=== PATIENT | female | born 1970 | race Caucasian/White ===

== ENCOUNTER 2020-11-28 15:19 | Outpatient (CLI) | payer OTHER, SELFPAY ==
--- NOTE | 2020-11-28 15:00 | ECG_ITS ---
Measurements Intervals [place] Rate: 77 P: 48 IA: 122 QRS: 48 QRSD: 93 T: 30 QT: 395 QTc: 448 Interpretive Statements SINUS RHYTHM BASELINE ARTIFACT- I, II, III, AVR, AVL, AVF NORMAL ECG Electronically Signed On 11-28-2020 15:34:36 CDT by Derick Breen D.O.
[2020-11-28 16:02] LABS: Basophils Absolute Auto 0.1 K/mm3 (0.0-0.1); Basophils Percent Auto 1.2 % (0.2-1.2); Eosinophils Absolute Auto 0.3 K/mm3 (0-0.3); Hematocrit 38.2 % (37.0-47.0); Hemoglobin 12.3 g/dL (12.0-15.0); Immature Granulocyte Absolute 0.02 K/mm3 (0.00-0.031); Immature Granulocyte Percent A 0.2 % (0-0.5); Lymphocytes Absolute Auto 2.19 K/mm3 (0.9-3.2); Lymphocytes Percent Auto 25.2 % (18.3-44.2); Mean Corpuscular HGB Conc 32.2 g/dl (32-36); Mean Corpuscular Hemoglobin 27.6 pg (26-34); Mean Corpuscular Volume 85.8 fl (80-100); Monocytes Absolute Auto 0.8 K/mm3 (0.1-0.6); Monocytes Percent Auto 9.6 % (2.6-8.5); Neutrophils Absolute Auto 5.3 K/mm3 (1.3-6.7); Neutrophils Percent Auto 60.8 % (45.5-73.1); Platelet Count Result 278 k/mm3 (150-375); Red Blood Count 4.45 M/mm3 (4.2-5.4); Red Cell Distribution Width 13.5 % (11.5-14.5); White Blood Count 8.7 K/mm3 (4.5-10.0)
== END 2020-11-28 15:20 | disposition home or self-care (01) ==
PROVIDERS: PCP Family Medicine; Visit Provider Obstetrics & Gynecology
DX: N92.6 Irregular menstruation, unspecified (principal); I49.9 Cardiac arrhythmia, unspecified; Z01.818 Encounter for other preprocedural examination
CPT/HCPCS: 36415; 85025; 86850; 86900; 86901; 93005

== ENCOUNTER 2020-12-02 01:14 | Day surgery (SDC) | payer OTHER, SELFPAY ==
[2020-11-25 11:50] VITALS: BMI 37.4
--- NOTE | 2020-11-29 09:41 | PM.IMHP ---
H&P: HPI History of Present Illness Date/Time: 11/29/20 09:41 this is a 49-year-old 7 para 6 with uterine fibroids and prolapse is admitted for robotic total vaginal hysterectomy and left salpingo-oophorectomy. Risks and benefits reviewed including but not exclusive of , aspiration pneumonia, bleeding, transfusion, perforation injury to bowel, bladder, ureters, or other internal organs with need for laparotomy. She voiced good understanding. She received the [employer] handout entitled hysterectomy. As well as the de Tony handout. She asked to proceed Chief Complaint: prolapse/pain Review of Systems Review of Systems: All systems reviewed & are unremarkable except as noted in HPI and below PMFSH Social History Social History Smoking status: Never smoker Alcohol intake: current Substance use: never Substance use type: does not use Spiritual care concerns: No Meds Home Medications and Allergies Home Medications Medication Instructions Recorded Confirmed Type calcium 200 mg PO DAILY 11/25/20 11/25/20 History cetirizine [Zyrtec] 10 mg PO DAILY 11/25/20 11/25/20 History cholecalciferol (vitamin D3) 100 mcg PO DAILY 11/25/20 11/25/20 History [Vitamin D3] duloxetine 60 mg PO DAILY 11/25/20 11/25/20 History etodolac 400 mg PO BID 11/25/20 11/25/20 History gabapentin 300 mg PO TID 11/25/20 11/25/20 History hydroxychloroquine [Plaquenil] 200 mg PO BID 11/25/20 11/25/20 History lutein 40 mg PO DAILY 11/25/20 11/25/20 History metoprolol succinate 25 mg PO DAILY 11/25/20 11/25/20 History multivitamin 2 tablet PO BID 11/25/20 11/25/20 History oxybutynin chloride 5 mg PO BID 11/25/20 11/25/20 History rotigotine [Neupro] 1 patch TRANSDERMAL DAILY 11/25/20 11/25/20 History tramadol 50 mg PO Q6H PRN 11/25/20 11/25/20 History vitamin B complex [Super B Complex] 1 tablet PO DAILY 11/25/20 11/25/20 History Allergies Allergy/AdvReac Type Severity Reaction Status Date / Time erythromycin base AdvReac Vomiting Verified 11/25/20 11:44 Exam Const: General: no acute distress Eyes: General: appearance normal, both eyes and all related structures Neck: Neck: supple and no JVD Thyroid: thyroid normal Resp: Effort & Inspection: normal respiratory effort Auscultation: clear to auscultation bilaterally Cardio: Rate: regular rate Rhythm: regular rhythm GI: Inspection: non-distended GI Palp: Yes Soft to palpation, No Tenderness to palpation present (GI) and No Guarding due to palpation present (GI) Auscultation: normal bowel sounds : General: Yes bladder normal to inspection External Female Exam: normal external appearance Speculum Exam - Vagina: normal appearance of the vagina Speculum Exam - Cervix: normal appearance of the cervix and Cervical os closed ( second-degree prolapse is present) Bimanual exam- vagina & uterus: enlarged Skin: General skin exam: no rashes or lesions noted Extrem: General: normal to inspection and no edema Psych: Mental Status: mental status grossly normal Affect: normal affect Assessment and Plan Additional Plan impression plan: The uterine prolapse enlarged uterus with pelvic pain Plan: Robotic total vaginal hysterectomy and bilateral salpingo-oophorectomy
[2020-12-02] VITALS (10 sets, daily range): BP systolic 103–116; BP diastolic 50–73; PULSE 67–90; RESP 12–20; TEMP 36.1–37.2; O2SAT 95–100
--- NOTE | 2020-12-02 06:44 | WPDHPUPDATE1 ---
History and Physical Update Update Date/Time: 12/02/20 06:44 History and Physical has been reviewed, including an updated exam of the patient. There are NO changes in the patient's condition. Risks, benefits, and alternatives have been discussed and questions answered. Patient agrees to proceed with procedure.
[2020-12-02] MEDS: ACETAMINOPHEN 500 MG TABLET 1000 MG PO (06:49)
--- NOTE | 2020-12-02 06:54 | WPDANESEPPF ---
Anes - Initial Pre Proc Eval Procedure: Operation Date: 12/02/20 07:30 Proposed Procedures p Robotic Assisted Total Vaginal Hysterectomy With Bilateral Salpingo Oophorectomy - Mina Jorge MD Date/Time: 12/02/20 06:54 Surgeon: Mina Jorge MD Pre Op Diagnosis: Enlarged Uterus, Irreg Bleeding Patient Data Age: 49 Gender: F Height: 5 ft 5 in Weight: 105 kg Last Vital Signs Temp 36.3 C L 12/02/20 06:34 Pulse 67 12/02/20 06:34 Resp 16 12/02/20 06:34 BP 116/73 12/02/20 06:34 Pulse Ox 100 12/02/20 06:34 Allergies Allergy/AdvReac Type Severity Reaction Status Date / Time erythromycin base AdvReac Intermediate Vomiting Verified 12/02/20 06:49 Home Medications Medication Instructions Recorded Confirmed Type calcium 200 mg PO DAILY 11/25/20 11/25/20 History cetirizine [Zyrtec] 10 mg PO DAILY 11/25/20 11/25/20 History cholecalciferol (vitamin D3) 100 mcg PO DAILY 11/25/20 11/25/20 History [Vitamin D3] duloxetine 60 mg PO DAILY 11/25/20 11/25/20 History etodolac 400 mg PO BID 11/25/20 11/25/20 History gabapentin 300 mg PO TID 11/25/20 11/25/20 History hydroxychloroquine [Plaquenil] 200 mg PO BID 11/25/20 11/25/20 History lutein 40 mg PO DAILY 11/25/20 11/25/20 History metoprolol succinate 25 mg PO DAILY 11/25/20 11/25/20 History multivitamin 2 tablet PO BID 11/25/20 11/25/20 History oxybutynin chloride 5 mg PO BID 11/25/20 11/25/20 History rotigotine [Neupro] 1 patch TRANSDERMAL DAILY 11/25/20 11/25/20 History tramadol 50 mg PO Q6H PRN 11/25/20 11/25/20 History vitamin B complex [Super B Complex] 1 tablet PO DAILY 11/25/20 11/25/20 History hydrocodone-acetaminophen 1 tablet PO Q6H PRN #30 tablet 12/02/20 Rx Patient hx anesthesia problems: none Family hx anesthesia problems: none [facility] Past Medical History Medical History (Updated 12/02/20 @ 07:13 by Mina Nunez MD) Mixed connective tissue disease Obesity PARVEZ on CPAP Social History Social History Smoking status: Never smoker Alcohol intake: current Alcohol use details: 2-3 TIMES/YEAR Substance use: never Substance use type: does not use Living arrangements: with family Spiritual care concerns: No Anes - Eval Final PreProcedure Day of Procedure 12/02/20 06:54 Patient weight: obese Heart: regular rate and rhythm Lungs: clear to auscultation Airway: Mallampati scale class II Neurological: alert and oriented Last oral intake: >/= 8 hours ASA classification: III Emergent: no Anesthetic plan: proceed Anesthesia type and monitoring: general ETT and standard monitoring Informed Consent: The patient's anesthetic plan and its attendant risks and benefits were discussed with the patient/family/POA. Questions were solicited and answers provided to the satisfaction of the patient/family/POA.
[2020-12-02] MEDS: KETOROLAC 15 MG/ML VIAL (*BKC) IV PUSH (07:25)
[2020-12-02] MEDS: LACTATED RINGERS 1,000 ML 30 ML IV CONT ×2 (07:27→09:11)
[2020-12-02] MEDS: ceFAZolin 2 GM/D5W 50 ML 2 GM/50 ML BAG IVPB (07:30)
--- NOTE | 2020-12-02 08:40 | SUR.OPER ---
uterus 206gm
--- NOTE | 2020-12-02 09:00 | P.OP_ITS ---
Procedure Note - Detailed Date of procedure: 12/02/20 Pre-op diagnosis: Enlarged Uterus, Irreg Bleeding Surgeon: Mina Jorge MD Postop diagnosis: Enlarged uterus/bleeding refractory to medical therapy Procedure: Robotic total vaginal hysterectomy and bilateral salpingo oophorectomies EBL: 100cc Anesthesia: General endotracheal Findings: Enlarged uterus. Enlarged left benign ovarian cyst. Tubes status post tubal ligation bilaterally. Complications: None Description of procedure: The patient was prepped draped in the normal sterile fashion and placed in the dorsal lithotomy position. Under excellent general endotracheal anesthesia weighted speculum placed in posterior fornix of vagina. Anterior lip of the cervix was grasped with a single-tooth tenaculum. The uterus sounded to 10cm. Serial dilatation with fragmented dilators performed followed by passage of the 8. JOHANNY and the 3. Cold cup. Next the 16 Khmer catheter was placed and drained of Q clear urine. The remainder the instruments removed. Gloves were changed A supraumbilical incision made in the Ve[place] needle passed in the abdomen. The abdomen was filled with CO2 gas [id number]. The 8mm trocar advanced in the abdomen and the downside visualized. No injury seen patient placed in Trendelenburg and right left lateral quadrant incisions made. 8mm trocars were then advanced into the abdomen under direct visualization assuring no injury. A right upper quadrant incision was made the 8mm trocar advanced under direct visualization assuring no injury. The robot was docked. Attention was turned to the console. The left round ligament was grasped anteriorly. This was clamped, burned, cut. Anteriorly a bladder flap was formed by sharply dissecting the peritoneum and reflecting the bladder caudally away from the uterus and cervix to the opposite round ligament which was clamped, burned, cut. Next the left infundibulopelvic structure was skeletonized to remove the left ovary and tube these were clamped, burned, cut and brought to the level of the previously cut round ligament. In like fashion removing the right ovary and tube the infundibulopelvic structure was skeletonized. This was clamped, burned, cut. This was brought to the level of the previously cut round ligament. Next the cardinal and broad ligaments on the left were serially skeletonized clamped, burned, cut and brought down the lateral edge until the uterine vessels could be seen on left these were large and tortuous and individually clamped, burned, cut. Next cardinal broad ligaments on the right were serially skeletonized clamped, burned, cut and brought down the lateral edge of the uterus until uterine vessels could be seen on the right uterine vessels were individually clamped, burned, cut. The excellent blanching the uterus was seen. A colpotomy incision was made in the cervix uterus ovaries and tubes removed through the vagina. Blood loss estimated [id number]. The vagina was closed with continuous running 0V lock from lateral edge to lateral edge back to the midline. Irrigation undertaken to clear and blood loss estimated [id number] or less. Hematuria was made cold over the vaginal cuff and hemostasis was assured. The robot was undocked. The gas removed from the abdomen. The incisions closed with 4 O Monocryl and glue after gas had been removed from the abdomen. The patient was awakened. All sponge, needle, instrument counts were correct. There were no immediate complications
[2020-12-02] MEDS: fentaNYL CITRATE INJ (*CRX) 100 MCG/2 ML VIAL 25 MCG IV PUSH ×8 (09:35→10:09)
--- NOTE | 2020-12-02 10:30 | PC.NURSE ---
This patient, Caitlin Harris, was received from PACU per bed to room 289. Patient/family oriented to unit policies and routines
[2020-12-02] MEDS: DEXTROSE 5%/LACTATED RINGERS 1,000 ML 125 ML IV CONT (10:54)
[2020-12-02] MEDS: HYDROcodone/acetaminophen (*CRX) 5-325 MG TABLET 1 TAB PO ×2 (13:24→14:15)
[2020-12-02] MEDS: IBUPROFEN 600 MG TABLET PO ×2 (14:15→20:18)
[2020-12-02] MEDS: HYDROcodone/acetaminophen (*CRX) 10-325 MG TABLET 1 TAB PO (20:17)
[2020-12-03] VITALS: BP 94/54; PULSE 88; RESP 16; TEMP 37.1; O2SAT 96
[2020-12-03] MEDS: IBUPROFEN 600 MG TABLET PO (04:48)
[2020-12-03] MEDS: HYDROcodone/acetaminophen (*CRX) 10-325 MG TABLET 1 TAB PO ×2 (04:49→09:36)
[2020-12-03 04:50] VITALS: BP 109/57; PULSE 77; RESP 18; TEMP 36.7; O2SAT 98
[2020-12-03 06:41] LABS: Basophils Percent Auto 0.4 % (0.2-1.2); Eosinophils Absolute Auto 0.1 K/mm3 (0-0.3); Eosinophils Percent Auto 0.6 % (0-4.4); Hematocrit 33.4 % (37.0-47.0); Hemoglobin 10.8 g/dL (12.0-15.0); Immature Granulocyte Absolute 0.03 K/mm3 (0.00-0.031); Immature Granulocyte Percent A 0.3 % (0-0.5); Lymphocytes Absolute Auto 2.26 K/mm3 (0.9-3.2); Lymphocytes Percent Auto 21.9 % (18.3-44.2); Mean Corpuscular HGB Conc 32.3 g/dl (32-36); Mean Corpuscular Hemoglobin 27.5 pg (26-34); Mean Platelet Volume 11.7 fl (7.4-10.4); Neutrophils Absolute Auto 6.9 K/mm3 (1.3-6.7); Neutrophils Percent Auto 66.8 % (45.5-73.1); Platelet Count Result 200 k/mm3 (150-375); Red Blood Count 3.93 M/mm3 (4.2-5.4); Red Cell Distribution Width 13.4 % (11.5-14.5); White Blood Count 10.3 K/mm3 (4.5-10.0)
--- NOTE | 2020-12-03 08:00 | PC.NURSE ---
PT introductions made and plan of care discussed per post op developer advisor surgery, pain management, daily care activities and pending discharge to home. PT verbalized understanding of such care.
--- NOTE | 2020-12-03 08:24 | P.PNAN_ITS ---
Anes - Prog Note Post-Op Date/Time: 12/03/20 08:24 Cardiovascular status: normal Respiratory status: normal Airway patency: baseline Mental status: baseline Post-Op hydration status: normal Vital Signs: Last Vital Signs Temp 36.7 C 12/03/20 04:50 Pulse 77 12/03/20 04:50 Resp 18 12/03/20 04:50 BP 109/57 L 12/03/20 04:50 Pulse Ox 98 12/03/20 04:50 Pain Score (VAS): 0/10. Patient resting in bed at time of assessment, appears comfortable. I/O: Intake & Output 12/02/20 12/03/20 12/03/20 23:59 07:59 15:59 Intake Total 1550 300 Output Total 825 550 Balance 725 -250 Laboratory Tests 12/03/20 06:17 12/03/20 06:17 WBC 10.3 H RBC 3.93 L Hgb 10.8 L Hct 33.4 L MCV 85.0 MCH 27.5 MCHC 32.3 RDW 13.4 Plt Count 200 MPV 11.7 H Immature Gran % (Auto) 0.3 Neut % (Auto) 66.8 Lymph % (Auto) 21.9 [place] % (Auto) 10.0 H Eos % (Auto) 0.6 Baso % (Auto) 0.4 Lymph # (Auto) 2.26 [place] # (Auto) 1.0 H Eos # (Auto) 0.1 Baso # (Auto) 0.0 Abs Immat Gran (auto) 0.03 Absolute Neuts (auto) 6.9 H Absolute Nucleated RBC 0.0 Nucleated RBC % 0.0 Post-procedural complaints: none Patient Feedback: Patient satisfied with anesthetic care.
[2020-12-03 09:30] VITALS: BP 89/62; PULSE 82; RESP 18; TEMP 36.7; TEMP 37.1; O2SAT 97
[2020-12-03] MEDS: ENOXAPARIN 40 MG/0.4 ML SYRINGE SUB-Q (09:35)
[2020-12-03] MEDS: DOCUSATE SODIUM 100 MG CAPSULE PO (09:36)
[2020-12-03] MEDS: SIMETHICONE 80 MG TAB.CHEW PO (09:36)
--- NOTE | 2020-12-03 11:09 | PM.GYNPNOP ---
BURR GRINDER - A/P Postoperative Procedures: Procedures Operation Date: 12/02/20 07:30 Actual Procedures Side Surgeon p Robotic Assisted Total Vaginal Hysterectomy With Bilateral Salpingo Oophorectomy Mina Jorge MD Time Spent With Patient Time with patient: less than 15 minutes BURR GRINDER- PN:Subj Post-Op Subjective Date/time seen: 12/03/20 11:09 Interval history: Pain OK. Tolerating diet. Voiding. Would like to go home. Exam Narrative: Exam Narrative: AVSS I/O OK ABD soft, nontender. Incisions c/d/i. EXT nontender BURR GRINDER - PN: Obj Data Vital Signs Vital Signs: Vital Signs - 24 hr 12/02/20 13:12 12/02/20 16:40 12/02/20 19:00 Temperature 37.1 C 37.1 C 37.2 C Pulse Rate 82 85 90 Respiratory Rate 18 20 16 Blood Pressure 112/55 L 103/57 L 111/50 L Pulse Oximetry 99 95 12/03/20 00:00 12/03/20 04:50 Temperature 37.1 C 36.7 C Pulse Rate 88 77 Respiratory Rate 16 18 Blood Pressure 94/54 L 109/57 L Pulse Oximetry 96 98 Intake/Output Intake/Output: Intake & Output 11/30/20 12/01/20 12/02/20 12/03/20 23:59 23:59 23:59 23:59 Intake Total 2590 300 Output Total 1475 550 Balance 1115 -250 Meds/Results Medications: Active Medications Generic Name Dose Route Start Last Admin Trade Name Freq PRN Reason Stop Dose Admin Hydrocodone Bitart/Acetaminophen 1 tab 12/02/20 10:21 12/02/20 14:15 Hydrocodone/Acetaminophen (*Crx) 5-325 Mg Tablet PO 1 tab Q3H PRN Administration Pain Rated 5 or Less Hydrocodone Bitart/Acetaminophen 1 tab 12/02/20 10:21 12/03/20 09:36 Hydrocodone/Acetaminophen (*Crx) 10-325 Mg Tablet PO 1 tab Q3H PRN Administration Pain Rated 6 or Greater Docusate Sodium 100 mg 12/02/20 10:12/03/20 09:36 Docusate Sodium 100 Mg Capsule PO 100 mg BID DANIEL Administration Enoxaparin Sodium 40 mg 12/02/20 10:12/03/20 09:35 Enoxaparin 40 Mg/0.4 Ml Syringe SUB-Q 40 mg DAILY DANIEL Administration Dextrose/Lactated Ringer's 1,000 mls @ 125 mls/hr 12/02/20 10:21 12/03/20 07:13 Dextrose 5%/Lactated Ringers IV CONT Not Given .Q8H DANIEL Ibuprofen 600 mg 12/02/20 10:21 12/03/20 04:48 Ibuprofen 600 Mg Tablet PO 600 mg Q6H PRN Administration Cramping Ketorolac Tromethamine 30 mg 12/02/20 10:21 Ketorolac 30 Mg/Ml Vial (*Bkc) IV PUSH 12/07/20 10:22 Q6H PRN Pain Rated 4-6 Morphine Sulfate 4 mg 12/02/20 10:21 Morphine Sulfate (*Crx) 4 Mg/Ml Inj IV PUSH Q4H PRN Severe breakthrough pain Naloxone HCl 0.1 mg 12/02/20 10:21 Naloxone Hcl 0.4 Mg/Ml Vial IV PUSH Q2M PRN Respiratory rate less than 10 Ondansetron HCl 4 mg 12/02/20 10:21 Ondansetron Inj 4 Mg/2 Ml Vial IV PUSH Q6H PRN Nausea And Vomiting Simethicone 80 mg 12/02/20 10:21 12/03/20 09:36 Simethicone 80 Mg Tab.Chew PO 80 mg Q2H PRN Administration Gas Labs CBC & Chem 7: 12/03/20 06:17 Labs: Laboratory Results - last 24 hr 12/03/20 06:17 WBC 10.3 H RBC 3.93 L Hgb 10.8 L Hct 33.4 L MCV 85.0 MCH 27.5 MCHC 32.3 RDW 13.4 Plt Count 200 MPV 11.7 H Immature Gran % (Auto) 0.3 Neut % (Auto) 66.8 Lymph % (Auto) 21.9 [place] % (Auto) 10.0 H Eos % (Auto) 0.6 Baso % (Auto) 0.4 Lymph # (Auto) 2.26 [place] # (Auto) 1.0 H Eos # (Auto) 0.1 Baso # (Auto) 0.0 Abs Immat Gran (auto) 0.03 Absolute Neuts (auto) 6.9 H Absolute Nucleated RBC 0.0 Nucleated RBC % 0.0
--- NOTE | 2020-12-03 11:12 | PM.DS ---
DS: Admitting Diagnosis Admitting Diagnosis Admitting Diagnosis: Fibroid uterus DS: Discharge Diagnosis Discharge Diagnosis (1) Fibroid uterus: Code(s): D25.9 - Leiomyoma of uterus, unspecified Status: Acute DS: Summary Hospital Course Hospital Course: Admitted on the date of scheduled surgery. Please see Dr. Radha mSith's note for details. Able to go home on POD 1. Time Spent with Patient Time attestation: Total time spent providing and/or coordinating discharge services: DS: Data Data Completed and Pending Pending studies at discharge: Pending at discharge 12/02/20 08:17 Surgical [PTH] Routine Labs on day of discharge: Labs from last 24 hours 12/03/20 06:17 WBC 10.3 H RBC 3.93 L Hgb 10.8 L Hct 33.4 L MCV 85.0 MCH 27.5 MCHC 32.3 RDW 13.4 Plt Count 200 MPV 11.7 H Immature Gran % (Auto) 0.3 Neut % (Auto) 66.8 Lymph % (Auto) 21.9 [place] % (Auto) 10.0 H Eos % (Auto) 0.6 Baso % (Auto) 0.4 Lymph # (Auto) 2.26 [place] # (Auto) 1.0 H Eos # (Auto) 0.1 Baso # (Auto) 0.0 Abs Immat Gran (auto) 0.03 Absolute Neuts (auto) 6.9 H Absolute Nucleated RBC 0.0 Nucleated RBC % 0.0 Discharge Plan Discharge Patient Disposition: Home, Self-Care Discharge Instructions: Call or return if temperature above 100.4? F, increased abdominal pain, increased vaginal bleeding or any new problems. Patient Instructions: Pain Management (DC), Vaginal Hysterectomy (DC) Stand Alone Forms: General Discharge Instructions Follow-up/Referrals: Mina Jorge MD [Physician] - Discharge Medications: New hydrocodone-acetaminophen 5-300 mg tablet 1 tablet PO Q6H PRN (Reason: pain) Qty: 30 RF: 0 No Action cetirizine [Zyrtec] 10 mg Tablet 10 mg PO DAILY RF: 0 tramadol 50 mg Tablet 50 mg PO Q6H PRN (Reason: Pain) RF: 0 vitamin B complex [Super B Complex] Tablet 1 tablet PO DAILY RF: 0 etodolac 400 mg Tablet 400 mg PO BID RF: 0 metoprolol succinate 25 mg Tablet Extended Release 24 Hr 25 mg PO DAILY RF: 0 hydroxychloroquine [Plaquenil] 200 mg Tablet 200 mg PO BID RF: 0 oxybutynin chloride 5 mg Tablet 5 mg PO BID RF: 0 calcium 100 mg Capsule 200 mg PO DAILY RF: 0 multivitamin Tablet,Chewable 2 tablet PO BID RF: 0 duloxetine 60 mg Capsule,Delayed Release(Dr/Ec) 60 mg PO DAILY RF: 0 gabapentin 300 mg Tablet 300 mg PO TID RF: 0 Vitamin D3 100 mcg (4,000 unit) Capsule 100 mcg PO DAILY RF: 0 Neupro 3 mg/24 hour Patch 24 Hour 1 patch TRANSDERMAL DAILY RF: 0 lutein 40 mg Capsule 40 mg PO DAILY RF: 0
--- NOTE | 2020-12-03 11:45 | PC.NURSE ---
PT received discharge instructions per protocol and verbalized understanding of such instructions. pt and spouse were recipients of one to one discussion. NO barriers to learning were identified. PT verbalized understanding of such instructions.
--- NOTE | 2020-12-03 12:10 | PC.NURSE ---
PT discharged to home ambulatory accompanied by spouse and taken to waiting car. Follow up appts confirmed
== END 2020-12-03 12:10 | disposition home or self-care (01) ==
LOC: ANHSURGERY 06:07 → ANHOB2 10:24
PROVIDERS: Visit Provider Obstetrics & Gynecology
PROC: (CPT 58552; principal; 2020-12-02 07:30)
DX: N93.9 Abnormal uterine and vaginal bleeding, unspecified (principal); D25.1 Intramural leiomyoma of uterus; N73.6 Female pelvic peritoneal adhesions (postinfective); N83.02 Follicular cyst of left ovary; N83.01 Follicular cyst of right ovary; G47.33 Obstructive sleep apnea (adult) (pediatric); E66.9 Obesity, unspecified; Z68.38 Body mass index [BMI] 38.0-38.9, adult
CPT/HCPCS: 58552; S2900; 36415; 85025; 86850; 86900; 86901; 88307; 93005; 99199; A9270; J0690; J1100; J1170; J1650; J1885; J2250; J2405; J2704; J2710; J3010; J7030; J7120; J7121

== ENCOUNTER 2022-03-13 08:16 | Outpatient (CLI) | payer OTHER, SELFPAY ==
[2022-03-13 09:18] LABS: Basophils Absolute Auto 0.1 K/mm3 (0.0-0.1); Basophils Percent Auto 1.1 % (0.2-1.2); Eosinophils Absolute Auto 0.1 K/mm3 (0-0.3); Eosinophils Percent Auto 1.4 % (0-4.4); Hematocrit 41.2 % (37.0-47.0); Hemoglobin 13.5 g/dL (12.0-15.0); Immature Granulocyte Absolute 0.03 K/mm3 (0.00-0.031); Immature Granulocyte Percent A 0.4 % (0-0.5); Lymphocytes Absolute Auto 1.33 K/mm3 (0.9-3.2); Lymphocytes Percent Auto 16.8 % (18.3-44.2); Mean Corpuscular HGB Conc 32.8 g/dl (32-36); Mean Corpuscular Hemoglobin 28.3 pg (26-34); Mean Corpuscular Volume 86.4 fl (80-100); Mean Platelet Volume 11.8 fl (7.4-10.4); Monocytes Absolute Auto 0.6 K/mm3 (0.1-0.6); Monocytes Percent Auto 6.9 % (2.6-8.5); Neutrophils Absolute Auto 5.8 K/mm3 (1.3-6.7); Neutrophils Percent Auto 73.4 % (45.5-73.1); Platelet Count Result 230 k/mm3 (150-375); Red Blood Count 4.77 M/mm3 (4.2-5.4); Red Cell Distribution Width 14.9 % (11.5-14.5); White Blood Count 7.9 K/mm3 (4.5-10.0)
[2022-03-13 09:32] LABS: Alanine Aminotransferase 20 U/L (6-35); Albumin Level 4.1 g/dL (3.5-5.1); Alkaline Phosphatase 104 U/L (38-126); Anion Gap 5 mmol/L (8-16); Aspartate Amino Transferase 26 U/L (14-36); Bilirubin,Total 0.3 mg/dL (0.2-1.3); Blood Urea Nitrogen 20 mg/dL (7-17); Calcium 8.9 mg/dL (8.4-10.2); Carbon Dioxide 27 mmol/L (22-30); Chloride 104 mmol/L (98-107); Estimated Glomerular Filt Rate > 60; Glucose 124 mg/dL (65-110); Magnesium 1.9 mg/dL (1.6-2.3); Potassium 4.1 mmol/L (3.4-5.0); Sodium 136 mmol/L (137-145)
[2022-03-13 09:56] LABS: Cortisol Random 1.33 ug/dL
== END 2022-03-13 08:17 | disposition home or self-care (01) ==
LOC: ANHLAB 08:25
PROVIDERS: PCP Internal Medicine
DX: E66.9 Obesity, unspecified (principal); M79.669 Pain in unspecified lower leg
CPT/HCPCS: 36415; 80053; 82533; 83735; 84443; 85025

== ENCOUNTER 2022-04-09 14:09 | Outpatient (CLI) | payer OTHER, SELFPAY ==
--- NOTE | ~2022-04-09 | CT_ITS ---
EXAMINATION: CT abdomen pelvis w con DATE: 04/09/2022 14:44 INDICATION: Right abdominal pain. TECHNIQUE: Computed tomography (CT) of the abdomen and pelvis was performed with 100 mL Omnipaque 350 intravenous contrast. Automated exposure control and iterative reconstruction technique were employe d. The dose-length product was 1140.13 mGy-cm. COMPARISON: None. FINDINGS: The visualized portions of the lung bases demonstrate mild atelectasis. No pleural effusion . The heart size is normal. No pericardial effusion. There is a small sliding hiatal hernia. The live r and spleen are normal. There are changes of cholecystectomy. The pancreas, adrenal glands, and kidn eys are normal. There is diverticulosis of the colon without evidence of diverticulitis. The appendix is normal. There are no dilated loops of bowel. There are no pathologically enlarged lymph nodes. Th ere is no free intraperitoneal fluid. There is severe spondylosis at L2-L3. IMPRESSION: 1. Small sliding hiatal hernia. Reviewed, dictated and finalized at location A.
== END 2022-04-09 14:10 | disposition home or self-care (01) ==
PROVIDERS: PCP Internal Medicine; Visit Provider Internal Medicine
DX: R10.9 Unspecified abdominal pain (principal); K44.9 Diaphragmatic hernia without obstruction or gangrene
CPT/HCPCS: 74177; Q9967

== ENCOUNTER 2022-04-11 13:20 | Outpatient (CLI) | payer OTHER, SELFPAY ==
[2022-04-11 13:43] LABS: Basophils Absolute Auto 0.1 K/mm3 (0.0-0.1); Eosinophils Absolute Auto 0.2 K/mm3 (0-0.3); Eosinophils Percent Auto 2.6 % (0-4.4); Hematocrit 43.3 % (37.0-47.0); Hemoglobin 13.7 g/dL (12.0-15.0); Immature Granulocyte Absolute 0.02 K/mm3 (0.00-0.031); Immature Granulocyte Percent A 0.3 % (0-0.5); Lymphocytes Absolute Auto 2.06 K/mm3 (0.9-3.2); Lymphocytes Percent Auto 29.3 % (18.3-44.2); Mean Corpuscular HGB Conc 31.6 g/dl (32-36); Mean Corpuscular Hemoglobin 28.2 pg (26-34); Mean Corpuscular Volume 89.1 fl (80-100); Mean Platelet Volume 11.1 fl (7.4-10.4); Monocytes Absolute Auto 0.9 K/mm3 (0.1-0.6); Monocytes Percent Auto 13.2 % (2.6-8.5); Neutrophils Absolute Auto 3.8 K/mm3 (1.3-6.7); Neutrophils Percent Auto 53.6 % (45.5-73.1); Platelet Count Result 242 k/mm3 (150-375); Red Blood Count 4.86 M/mm3 (4.2-5.4); Red Cell Distribution Width 14.2 % (11.5-14.5)
[2022-04-11 13:54] LABS: Alanine Aminotransferase 26 U/L (6-35); Albumin Level 4.3 g/dL (3.5-5.1); Alkaline Phosphatase 96 U/L (38-126); Amylase 73 U/L (30-110); Anion Gap 6 mmol/L (8-16); Aspartate Amino Transferase 30 U/L (14-36); Bilirubin,Total 0.4 mg/dL (0.2-1.3); Blood Urea Nitrogen 18 mg/dL (7-17); Calcium 8.9 mg/dL (8.4-10.2); Carbon Dioxide 30 mmol/L (22-30); Chloride 102 mmol/L (98-107); Estimated Glomerular Filt Rate 58; Glucose 74 mg/dL (65-110); Lipase 21 U/L (23-300); Potassium 3.8 mmol/L (3.4-5.0); Sodium 138 mmol/L (137-145)
== END 2022-04-11 13:21 | disposition home or self-care (01) ==
LOC: ANHLAB 13:22
PROVIDERS: PCP Internal Medicine; Visit Provider Internal Medicine
DX: R10.9 Unspecified abdominal pain (principal)
CPT/HCPCS: 36415; 80053; 82150; 83690; 85025

== ENCOUNTER 2022-04-12 16:30 | Outpatient (CLI) | payer OTHER, SELFPAY ==
--- NOTE | ~2022-04-12 | CT_ITS ---
EXAMINATION: CT sinus wo con DATE: 04/12/2022 16:54 INDICATION: Headache, chronic rhinitis, chronic ethmoid sinusitis. Recurrent sinus infections. TECHNIQUE: Computed tomography (CT) of the paranasal sinuses was performed without contrast. Iterativ e reconstruction technique was employed. Exam dose: 295.93 mGy-cm total exam DLP. COMPARISON: None FINDINGS: There is prominent rightward deviation of the nasal septum. The nasal turbinates are unrema rkable except for interlamellar cell of middle nasal turbinates. The ostiomeatal units are patent. A single opacified right ethmoid air cell is noted. Otherwise the paranasal sinuses are normally deve loped and aerated. The mastoid air cells are normally developed and aerated. IMPRESSION: Prominent rightward deviation of nasal septum Single opacified right ethmoid air cell Reviewed, dictated and finalized at Location A. Reviewed, dictated and finalized at location B.
== END 2022-04-12 16:31 | disposition home or self-care (01) ==
PROVIDERS: PCP Internal Medicine; Visit Provider Otolaryngology
DX: J32.2 Chronic ethmoidal sinusitis (principal); J31.0 Chronic rhinitis; J34.2 Deviated nasal septum
CPT/HCPCS: 70486

== ENCOUNTER 2022-04-17 16:01 | Outpatient (CLI) | payer OTHER, SELFPAY ==
[2022-04-17 16:38] LABS: Anion Gap 8 mmol/L (8-16); Blood Urea Nitrogen 18 mg/dL (7-17); Calcium 8.9 mg/dL (8.4-10.2); Carbon Dioxide 28 mmol/L (22-30); Chloride 101 mmol/L (98-107); Estimated Glomerular Filt Rate > 60; Glucose 101 mg/dL (65-110); Potassium 3.6 mmol/L (3.4-5.0); Sodium 137 mmol/L (137-145)
== END 2022-04-17 16:02 | disposition home or self-care (01) ==
LOC: ANHLAB 16:02
PROVIDERS: PCP Internal Medicine; Visit Provider Internal Medicine
DX: N28.9 Disorder of kidney and ureter, unspecified (principal)
CPT/HCPCS: 36415; 80048; 82610

== ENCOUNTER 2022-04-23 07:13 | Outpatient (CLI) | payer OTHER, SELFPAY ==
[2022-04-23 07:44] LABS: Basophils Absolute Auto 0.1 K/mm3 (0.0-0.1); Basophils Percent Auto 1.4 % (0.2-1.2); Eosinophils Absolute Auto 0.2 K/mm3 (0-0.3); Eosinophils Percent Auto 3.2 % (0-4.4); Hematocrit 42.3 % (37.0-47.0); Hemoglobin 13.7 g/dL (12.0-15.0); Immature Granulocyte Absolute 0.01 K/mm3 (0.00-0.031); Immature Granulocyte Percent A 0.2 % (0-0.5); Lymphocytes Absolute Auto 1.61 K/mm3 (0.9-3.2); Lymphocytes Percent Auto 28.4 % (18.3-44.2); Mean Corpuscular HGB Conc 32.4 g/dl (32-36); Mean Corpuscular Hemoglobin 28.4 pg (26-34); Mean Corpuscular Volume 87.6 fl (80-100); Monocytes Absolute Auto 0.7 K/mm3 (0.1-0.6); Monocytes Percent Auto 12.9 % (2.6-8.5); Neutrophils Absolute Auto 3.1 K/mm3 (1.3-6.7); Neutrophils Percent Auto 53.9 % (45.5-73.1); Platelet Count Result 294 k/mm3 (150-375); Red Blood Count 4.83 M/mm3 (4.2-5.4); Red Cell Distribution Width 13.9 % (11.5-14.5); White Blood Count 5.7 K/mm3 (4.5-10.0)
[2022-04-23 07:56] LABS: Alanine Aminotransferase 22 U/L (6-35); Alkaline Phosphatase 98 U/L (38-126); Amylase 73 U/L (30-110); Anion Gap 8 mmol/L (8-16); Aspartate Amino Transferase 30 U/L (14-36); Bilirubin,Total 0.4 mg/dL (0.2-1.3); Blood Urea Nitrogen 18 mg/dL (7-17); Calcium 9.5 mg/dL (8.4-10.2); Carbon Dioxide 27 mmol/L (22-30); Chloride 99 mmol/L (98-107); Estimated Glomerular Filt Rate > 60; Glucose 95 mg/dL (65-110); Lipase 28 U/L (23-300); Potassium 4.3 mmol/L (3.4-5.0); Sodium 134 mmol/L (137-145)
== END 2022-04-23 07:14 | disposition home or self-care (01) ==
LOC: ANHLAB 07:16
PROVIDERS: PCP Internal Medicine; Visit Provider Internal Medicine
DX: N28.9 Disorder of kidney and ureter, unspecified (principal); R10.9 Unspecified abdominal pain
CPT/HCPCS: 36415; 80053; 82150; 83690; 85025

== ENCOUNTER 2022-04-23 13:20 | Outpatient (CLI) | payer OTHER, SELFPAY ==
[2022-04-23 15:51] LABS: Thyroid Stimulating Hormone 0.396 uIU/mL (0.465-4.680)
[2022-04-23 17:12] LABS: Iron 118 ug/dL (37-170)
[2022-04-23 17:23] LABS: Percent Iron Saturation 27 % (20-50)
[2022-04-25 11:11] LABS: DHEA-Sulfate 6 mcg/dL (8-188)
[2022-04-27 12:08] LABS: Testosterone Total 6 ng/dL (2-45)
== END 2022-04-23 13:21 | disposition home or self-care (01) ==
PROVIDERS: PCP Internal Medicine; Visit Provider Internal Medicine
DX: L65.9 Nonscarring hair loss, unspecified (principal)
CPT/HCPCS: 36415; 82627; 83540; 83550; 84403; 84443

== ENCOUNTER 2022-05-01 11:16 | Outpatient (CLI) | payer OTHER, SELFPAY ==
--- NOTE | ~2022-05-01 | US_ITS ---
EXAMINATION: US soft tissue head and neck DATE: 05/01/2022 11:45 INDICATION: Right lower neck mass. TECHNIQUE: Grayscale and Doppler ultrasound images of the neck soft tissues were obtained. COMPARISON: None. FINDINGS: The area of clinical concern in the right lower neck was interrogated sonographically. Norm al subcutaneous fat without edema. Normal deep tissues and muscle planes. No cystic or solid mass. IMPRESSION: No sonographic abnormality in the area of clinical concern in the right lower neck. Reviewed, dictated and finalized at location K. IMPRESSION: No sonographic abnormality in the area of clinical concern in the right lower n poli.
== END 2022-05-01 11:17 | disposition home or self-care (01) ==
PROVIDERS: PCP Internal Medicine; Visit Provider Internal Medicine
DX: M79.89 Other specified soft tissue disorders (principal)
CPT/HCPCS: 76536

== ENCOUNTER 2022-05-03 10:00 | Outpatient (CLI) | payer OTHER, SELFPAY ==
--- NOTE | ~2022-05-03 | CT_ITS ---
EXAMINATION: CT abdomen pelvis wo con DATE: 05/03/2022 10:14 INDICATION: Right flank pain. Hematuria. TECHNIQUE: Computed tomography (CT) of the abdomen and pelvis was performed without intravenous contr ast. Automated exposure control and iterative reconstruction technique were employed. The dose-length product was 1064.78 mGy-cm. COMPARISON: CT abdomen and pelvis 04/09/2022 FINDINGS: The visualized portions of the lung bases demonstrate minimal atelectasis. No pleural effus ion. The heart size is normal. No pericardial effusion. There is a small sliding hiatal hernia. The l iver is normal. There are changes of cholecystectomy. The spleen, pancreas, adrenal glands, and kidne ys are normal. There is a 1 mm stone in distal right ureter. There are no dilated loops of bowel. The appendix is normal. There are no pathologically enlarged lymph nodes. There is no free intraperitone al fluid. There is moderate lumbar spondylosis. IMPRESSION: 1. 1 mm stone in distal right ureter. No hydronephrosis. 2. Small sliding hiatal hernia. Reviewed, dictated and finalized at location A.
[2022-05-03 12:02] LABS: Basophils Absolute Auto 0.1 K/mm3 (0.0-0.1); Basophils Percent Auto 1.2 % (0.2-1.2); Eosinophils Absolute Auto 0.1 K/mm3 (0-0.3); Hemoglobin 13.1 g/dL (12.0-15.0); Immature Granulocyte Absolute 0.01 K/mm3 (0.00-0.031); Immature Granulocyte Percent A 0.2 % (0-0.5); Lymphocytes Absolute Auto 1.82 K/mm3 (0.9-3.2); Mean Corpuscular Hemoglobin 28.4 pg (26-34); Mean Corpuscular Volume 88.9 fl (80-100); Mean Platelet Volume 11.4 fl (7.4-10.4); Monocytes Percent Auto 15.2 % (2.6-8.5); Neutrophils Absolute Auto 3.5 K/mm3 (1.3-6.7); Neutrophils Percent Auto 53.4 % (45.5-73.1); Platelet Count Result 273 k/mm3 (150-375); Red Blood Count 4.61 M/mm3 (4.2-5.4); Red Cell Distribution Width 13.8 % (11.5-14.5); White Blood Count 6.5 K/mm3 (4.5-10.0)
[2022-05-03 12:23] LABS: Alanine Aminotransferase 26 U/L (6-35); Albumin Level 3.9 g/dL (3.5-5.1); Alkaline Phosphatase 91 U/L (38-126); Anion Gap 6 mmol/L (8-16); Aspartate Amino Transferase 30 U/L (14-36); Bilirubin,Total 0.3 mg/dL (0.2-1.3); Blood Urea Nitrogen 18 mg/dL (7-17); Carbon Dioxide 26 mmol/L (22-30); Chloride 103 mmol/L (98-107); Estimated Glomerular Filt Rate > 60; Glucose 88 mg/dL (65-110); Potassium 3.9 mmol/L (3.4-5.0); Sodium 135 mmol/L (137-145)
== END 2022-05-03 10:01 | disposition home or self-care (01) ==
PROVIDERS: PCP Internal Medicine; Visit Provider Internal Medicine
DX: R31.9 Hematuria, unspecified (principal); R10.9 Unspecified abdominal pain; K44.9 Diaphragmatic hernia without obstruction or gangrene; N20.1 Calculus of ureter
CPT/HCPCS: 36415; 74176; 80053; 85025

== ENCOUNTER 2022-05-15 06:56 | Outpatient (CLI) | payer OTHER, SELFPAY ==
[2022-05-15 07:36] LABS: Appearance Urine Clear (Clear); Bilirubin Urine Negative (Negative); Blood Urine Negative (Negative); Color Urine Yellow (Yellow); Glucose Urine UA Negative (Negative); Ketones Urine Negative (Negative); Leukocyte Esterase Ur 1+ LEU/UL (Negative); Nitrate Urine Positive (Negative); Protein Urine Trace mg/dL (Negative); Specific Grav Ur >= 1.030 (1.001-1.035); Urobilinogen Urine 0.2 mg/dL (<2.0); pH Urine 5.5 (5.0-9.0)
[2022-05-15 07:49] LABS: Add Urine Microscopic? YES; RBC Urine 0-2 /hpf (0-2); Squamous Epithelial Cell Urine Few /hpf (Few)
[2022-05-15 07:50] LABS: Bacteria Urine 3+ /hpf; Mucus Urine Few /lpf
== END 2022-05-15 06:57 | disposition home or self-care (01) ==
PROVIDERS: PCP Internal Medicine; Visit Provider Internal Medicine
DX: R30.0 Dysuria (principal)
CPT/HCPCS: 81001; 87077; 87086; 87088; 87186

== ENCOUNTER 2022-06-14 08:54 | Outpatient (CLI) | payer OTHER, SELFPAY ==
[2022-06-14 09:27] LABS: Basophils Absolute Auto 0.1 K/mm3 (0.0-0.1); Basophils Percent Auto 0.9 % (0.2-1.2); Eosinophils Absolute Auto 0.1 K/mm3 (0-0.3); Eosinophils Percent Auto 0.9 % (0-4.4); Hematocrit 42.6 % (37.0-47.0); Hemoglobin 13.8 g/dL (12.0-15.0); Immature Granulocyte Absolute 0.05 K/mm3 (0.00-0.031); Immature Granulocyte Percent A 0.5 % (0-0.5); Lymphocytes Absolute Auto 1.54 K/mm3 (0.9-3.2); Lymphocytes Percent Auto 15.3 % (18.3-44.2); Mean Corpuscular HGB Conc 32.4 g/dl (32-36); Mean Corpuscular Hemoglobin 29.2 pg (26-34); Mean Corpuscular Volume 90.3 fl (80-100); Mean Platelet Volume 10.8 fl (7.4-10.4); Monocytes Absolute Auto 0.7 K/mm3 (0.1-0.6); Monocytes Percent Auto 6.5 % (2.6-8.5); Neutrophils Absolute Auto 7.6 K/mm3 (1.3-6.7); Neutrophils Percent Auto 75.9 % (45.5-73.1); Platelet Count Result 294 k/mm3 (150-375); Red Blood Count 4.72 M/mm3 (4.2-5.4); Red Cell Distribution Width 13.9 % (11.5-14.5); White Blood Count 10.1 K/mm3 (4.5-10.0)
[2022-06-14 09:41] LABS: Alanine Aminotransferase 25 U/L (6-35); Albumin Level 4.1 g/dL (3.5-5.1); Alkaline Phosphatase 79 U/L (38-126); Anion Gap 11 mmol/L (8-16); Aspartate Amino Transferase 25 U/L (14-36); Bilirubin,Total 0.4 mg/dL (0.2-1.3); Blood Urea Nitrogen 17 mg/dL (7-17); Calcium 9.3 mg/dL (8.4-10.2); Carbon Dioxide 28 mmol/L (22-30); Chloride 100 mmol/L (98-107); Estimated Glomerular Filt Rate > 60; Glucose 104 mg/dL (65-110); Potassium 4.2 mmol/L (3.4-5.0); Sodium 139 mmol/L (137-145)
[2022-06-14 10:07] LABS: Thyroid Stimulating Hormone 0.308 uIU/mL (0.465-4.680)
[2022-06-14 10:45] LABS: Free T4 Free Thyroxine 1.26 ng/mL (0.78-2.19)
== END 2022-06-14 08:55 | disposition home or self-care (01) ==
LOC: ANHLAB 08:58
PROVIDERS: PCP Internal Medicine; Visit Provider Internal Medicine
DX: R79.89 Other specified abnormal findings of blood chemistry (principal); R31.9 Hematuria, unspecified; R10.9 Unspecified abdominal pain
CPT/HCPCS: 36415; 80053; 84439; 84443; 85025

== ENCOUNTER 2022-06-27 12:04 | Outpatient (CLI) | payer OTHER, SELFPAY ==
--- NOTE | ~2022-06-27 | MM_ITS ---
EXAMINATION: MM screening alia BI w abdoulaye HISTORY: Screening TECHNIQUE: Craniocaudal and mediolateral oblique 3-D tomosynthesis images were obtained and synthetic 2-D images were generated. CAD analysis was submitted and interpreted. COMPARISON: No prior mammogram is available for comparison at this institution. BREAST PARENCHYMAL COMPOSITION: There are scattered areas of fibroglandular density. FINDINGS: There are asymmetries centered in the upper outer quadrant of the right breast. There is as ymmetry in the upper outer quadrant of the left breast with possible architectural distortion. IMPRESSION: 1. Bilateral breast asymmetries. 2. Additional mammographic views and possible breast ultrasound are recommended. BI-RADS Category 0: Incomplete: Needs additional imaging evaluation. Reviewed, dictated and finalized at location D. IMPRESSION: 1. Bilateral breast asymmetries. 2. Additional mammographic views and possible breast ultrasound are recommended . BI-RADS Category 0: Incomplete: Needs additional imaging evaluation.
== END 2022-06-27 12:05 | disposition home or self-care (01) ==
LOC: ANHIMG 12:10
PROVIDERS: PCP Internal Medicine; Referring Provider Obstetrics & Gynecology; Visit Provider Internal Medicine
DX: Z12.31 Encounter for screening mammogram for malignant neoplasm of breast (principal); R92.8 Other abnormal and inconclusive findings on diagnostic imaging of breast
CPT/HCPCS: 77063; 77067

== ENCOUNTER 2022-07-20 16:12 | Outpatient (CLI) | payer OTHER, SELFPAY ==
--- NOTE | ~2022-07-20 | MR_ITS ---
EXAMINATION: MR cervical spine wo con DATE: 07/20/2022 16:58 INDICATION: Cervical radiculopathy. TECHNIQUE: Magnetic resonance imaging (MRI) of the cervical spine was performed without intravenous c ontrast. Sequences included sagittal T2-weighted FSE, sagittal T2-weighted FS FSE, sagittal T1-weight ed FSE, axial MERGE, and axial T2-weighted FSE. COMPARISON: None FINDINGS: There is hypolordosis of cervical spine. Vertebral body heights are normal. Intervertebral disc heights are normal. The spinal cord signal intensity is normal. The following disc levels are sp ecifically discussed: C2-C3: The disc does not extend beyond the endplate margin. There is no uncovertebral joint osteoarth ritis. There is mild bilateral facet joint osteoarthritis. There is no neural foraminal stenosis. The re is no central canal stenosis. C3-C4: There is a central protrusion. There is no uncovertebral joint osteoarthritis. There is modera te bilateral facet joint osteoarthritis. There is no neural foraminal stenosis. There is mild central canal stenosis. C4-C5: There is a central protrusion. There is no uncovertebral joint osteoarthritis. There is no fac et joint osteoarthritis. There is no neural foraminal stenosis. There is no central canal stenosis. C5-C6: There is a right central extrusion. There is mild bilateral uncovertebral joint osteoarthritis . There is mild right facet joint osteoarthritis. There is mild left neural foraminal stenosis. There is mild central canal stenosis. C6-C7: There is a central protrusion. There is no uncovertebral joint osteoarthritis. There is no fac et joint osteoarthritis. There is no neural foraminal stenosis. There is no central canal stenosis. C7-T1: The disc does not extend beyond the endplate margin. There is no uncovertebral joint osteoarth ritis. There is mild right and moderate left facet joint osteoarthritis. There is mild left neural fo raminal stenosis. There is no central canal stenosis. IMPRESSION: 1. Mild cervical spondylosis. Reviewed, dictated and finalized at location A. Y ROLLER
--- NOTE | ~2022-07-20 | MR_ITS ---
EXAMINATION: MR brain/brain stem wo/w con DATE: 07/20/2022 17:08 INDICATION: Arachnoid cyst. TECHNIQUE: Magnetic resonance imaging (MRI) of the brain and brainstem was performed without and with 20 mL MultiHance intravenous contrast. COMPARISON: Sinuses CT 04/12/2022 FINDINGS: There is no intracranial hemorrhage, acute infarction, or abnormal intracranial mass lesion . There is a 3.9 x 2.4 x 2.6 cm arachnoid cyst in superior cerebellar cistern. There are scattered ar eas of nonspecific increased T2-weighted signal intensity in the cerebral white matter, which is with in normal limits for the patient's age. The ventricles are normal in size. The paranasal sinuses are clear. The orbits are normal. The mastoid air cells are normal. IMPRESSION: 1. Arachnoid cyst in superior cerebellar cistern. Reviewed, dictated and finalized at location A. 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
== END 2022-07-20 16:13 | disposition home or self-care (01) ==
PROVIDERS: PCP Internal Medicine; Visit Provider Internal Medicine
DX: G93.0 Cerebral cysts (principal); M47.892 Other spondylosis, cervical region
CPT/HCPCS: 70553; 72141; A9577

== ENCOUNTER 2022-10-04 10:27 | Outpatient (CLI) | payer OTHER, SELFPAY ==
--- NOTE | ~2022-10-04 | XR_ITS ---
Lumbosacral Spine: AP and lateral flexion and extension views. Clinical History: Pain Findings: The normal lordotic curve is maintained. There is moderate degenerative disc narrowing at L 2-L3. No fracture or subluxation evident. There is mild facet joint degenerative change from L3 throu gh S1. The sacroiliac joints are normally outlined. Impression: Minimal degenerative changes, as above. Reviewed, dictated and finalized at location M. RUFFER Impression: Minimal degenerative changes, as above.
== END 2022-10-04 10:28 | disposition home or self-care (01) ==
PROVIDERS: PCP Internal Medicine; Visit Provider Family Medicine
DX: M47.816 Spondylosis without myelopathy or radiculopathy, lumbar region (principal)
CPT/HCPCS: 72100

== ENCOUNTER 2022-10-05 10:27 | Outpatient (CLI) | payer OTHER, SELFPAY ==
--- NOTE | ~2022-10-05 | XR_ITS ---
AP and oblique views of the sacrum/coccyx Clinical history: Injury FINDINGS: No fracture or dislocation seen. SI joints are intact. Soft tissues are unremarkable. Bilat eral hip joints also appear intact. IMPRESSION: Unremarkable exam. Reviewed, dictated and finalized at location . ARE CASE WORKER IMPRESSION: Unremarkable exam.
== END 2022-10-05 10:28 | disposition home or self-care (01) ==
PROVIDERS: PCP Internal Medicine; Visit Provider Internal Medicine
DX: S39.92XA Unspecified injury of lower back, initial encounter (principal); X58.XXXA Exposure to other specified factors, initial encounter
CPT/HCPCS: 72220

== ENCOUNTER → 2023-01-02 16:28 | Outpatient (CLI) | payer OTHER, SELFPAY ==
--- NOTE | ~2023-01-02 | XR_ITS ---
EXAMINATION: XR ankle RT min 3V DATE: 01/02/2023 17:08 INDICATION: Right ankle pain TECHNIQUE: Anteroposterior, oblique, mortise, and lateral views of the right ankle were obtained. Add itional AP and lateral views of the more proximal tibia and fibula were obtained to include the entir ety of internal fixation instrumentation. COMPARISON: None. FINDINGS: Old healed distal diaphyseal fractures of the right tibia and fibula. The tibial fractures fixed with an antegrade intramedullary nhi with proximal and distal interlocking screws. No lucency surrounding the instrumentation to suggest loosening or infection. Alignment of the fixation appears near-anatom ic. No acute fractures identified. Mild osteoarthritis at the talonavicular and a few of the tarsal m etatarsal joints. No right knee or ankle joint effusion. IMPRESSION: 1. Old healed distal right tibia and fibular fractures, the former with internal fixation. No acute o sseous abnormality. Reviewed, dictated and finalized at location A. IMPRESSION: 1. Old healed distal right tibia and fibular fractures, the former with interna l fixation. No acute osseous abnormality.
== END ==
PROVIDERS: PCP Internal Medicine; Visit Provider Internal Medicine
DX: S99.911A Unspecified injury of right ankle, initial encounter (principal); Z87.81 Personal history of (healed) traumatic fracture; X58.XXXA Exposure to other specified factors, initial encounter
CPT/HCPCS: 73610